=== PATIENT | female | born 1950 | race African-American/Black ===

== ENCOUNTER 2019-07-13 05:39 | Day surgery (SDC) | payer MEDICARE, MEDICAID ==
--- NOTE | 2019-07-10 13:32 | Opthalmology H&P ---
Ophthalmology H&P H&P Chief Complaint: decreased vision in right eye HPI Vision Affects Ability to: read Past Ocular History: glaucoma, retinal problems - HTN Retinopathy OU HPI Narrative Blurry vision Exam Visual Acuity: OD 20/80 OS 20/80 Tension: OD 10 OS 14 Eye Exam: normal OU: external exam, palpebral fissure-width, marginal reflex distance, levator function, corneas, anterior chambers; findings: lens, fundus exam - HTN Retinopathy OU Assessment/Plan Treatment Plan: cataract extraction w/ lens implant Goals of Treatment: improvement of vision, enhance quality of life Attestation Attestation The risks and benefits of the surgery as well as alternative procedures were explained to the patient in detail. Keith Soto MD Jul 10, 2019 13:32
--- NOTE | 2019-07-10 13:33 | Pre-Procedure Note/Attestation ---
Pre-Procedure Note/Attestation Complete Prior to Procedure Planned Procedure: right Procedure Narrative: Cataract extraction with IOL implant right eye Indications for Procedure Pre-Operative Diagnosis: Nuclear sclerotic cataract right eye Attestation I attest that I discussed the nature of the procedure; its benefits; risks and complications; and alternatives (and the risks and benefits of such alternatives ), prior to the procedure, with the patient (or the patient's legal aircraft sales representative). I attest that, if there was a reasonable possibility of needing a blood transfusion, the patient (or the patient's legal aircraft sales representative) was given the [facility] standardized written summary, pursuant to the Galen [employer] Blood Safety Act ([place] Health and Safety Code # 1645, as amended). I attest that I re-evaluated the patient just prior to the surgery and that there has been no change in the patient's H&P, except as documented below: Keith Soto MD Jul 10, 2019 13:33
[2019-07-13] VITALS (10 sets, daily range): BP systolic 103–129; BP diastolic 64–81
[~2019-07-13] VITALS: Ht 167.6 cm; Wt 81.2 kg
[2019-07-13] MEDS ORDERED: Proparacaine 0.5% Opth Soln 15ml RIGHT EYE ONE (07:00)
[2019-07-13] MEDS ORDERED: Tetracaine 0.5% Opth 4ml Soln RIGHT EYE ONE (07:00)
[2019-07-13] MEDS ORDERED: Akten 3.5% 1ml Btl RIGHT EYE ONE (07:00)
[2019-07-13 07:57] LABS: BASOPHILS % (AUTO) 4.2 % (0.0-2.0); EOSINOPHILS % (AUTO) 2.2 % (0.0-3.0); HEMATOCRIT 36.7 % (37.0-47.0); HEMOGLOBIN 12.5 G/DL (12.0-16.0); MEAN CORPUSCULAR VOLUME 86 FL (80-99); NEUTROPHILS % (AUTO) 64.6 % (45.0-75.0); PLATELET COUNT 271 K/UL (150-450); RED BLOOD COUNT 4.27 M/UL (4.20-5.40); RED CELL DISTRIBUTION WIDTH 12.2 % (11.6-14.8); WHITE BLOOD COUNT 7.3 K/UL (4.8-10.8)
[2019-07-13 08:25] LABS: ANION GAP 12 mmol/L (5-15); BLOOD UREA NITROGEN 35 mg/dL (7-18); CARBON DIOXIDE 22 MMOL/L (21-32); CHLORIDE 109 MMOL/L (98-107); CREATININE 2.6 MG/DL (0.55-1.30); POTASSIUM 4.2 MMOL/L (3.5-5.1); SODIUM 143 MMOL/L (136-145)
[2019-07-13] MEDS: Phenylephrine 10% Opth Soln 5ml RIGHT EYE SCH ×3 (08:53→09:15)
[2019-07-13] MEDS: Cyclopentolate 1% Opth Sol 2ml RIGHT EYE SCH ×3 (08:53→09:15)
[2019-07-13] MEDS: Tropicamide 1% Opth 15ml Soln RIGHT EYE SCH ×3 (08:53→09:15)
[2019-07-13] MEDS: Tobramycin Op Soln 0.3% 5ml RIGHT EYE SCH ×3 (08:53→09:15)
[2019-07-13] MEDS: Diclofenac Sod 0.1% Op Soln RIGHT EYE SCH ×3 (08:54→09:15)
[2019-07-13] MEDS ORDERED: BP MED PO (09:02)
[2019-07-13] MEDS ORDERED: VENTOLIN HFA18 GM INH (09:20)
[2019-07-13] MEDS ORDERED: LR 1000ml 1,000 ML IVLG SCH (09:59)
[2019-07-13] MEDS ORDERED: Labetalol 5mg/ml 20ml vial IV PRN (10:00)
[2019-07-13] MEDS ORDERED: DiphenhydrAMINE 50mg/ml Inj IVP PRN (10:00)
[2019-07-13] MEDS ORDERED: Midazolam 2mg/2ml Inj IVP PRN (10:00)
[2019-07-13] MEDS ORDERED: Meperidine 25mg/0.5ml Inj (FOR RIGORS ONLY) IV PRN (10:00)
[2019-07-13] MEDS ORDERED: oxyCODONE HCL/Acetaminophen 5/325mg ORAL PRN (10:00)
[2019-07-13] MEDS ORDERED: LORazepam Inj 2mg/ml 1ml IV PRN (10:00)
[2019-07-13] MEDS ORDERED: fentaNYL 100 mcg/2 mL IV PRN (10:00)
[2019-07-13] MEDS ORDERED: Ketorolac 30mg Inj IV PRN ×2 (10:00)
[2019-07-13] MEDS ORDERED: Metoclopramide 10mg/2ml Inj IVP PRN (10:00)
[2019-07-13] MEDS ORDERED: HYDROcodone/Acetamin 7.5/325 tab ORAL PRN (10:00)
[2019-07-13] MEDS ORDERED: Hydromorphone 0.5mg/0.5ml inj IVP PRN (10:00)
[2019-07-13] MEDS ORDERED: HYDROcodone/Acetamin 5/325 tab ORAL PRN (10:00)
[2019-07-13] MEDS ORDERED: Atropine Sulfate 0.4mg/ml inj IVP PRN (10:00)
--- NOTE | 2019-07-13 10:10 | Anethesia Preoperative Eval ---
Anesthesia Pre-op PMH/ROS General Date of Evaluation: Jul 13, 2019 Time of Evaluation: 10:32 Anesthesiologist: Chuckie ASA Score: ASA 3 Mallampati Score Class I : Soft palate, uvula, fauces, pillars visible Class II: Soft palate, uvula, fauces visible Class III: Soft palate, base of uvula visible Class IV: Only hard plate visible Mallampati Classification: Class III Surgeon: Brittany Diagnosis: Cataract OD Surgical Procedure: CAT EXT IOL OD Social History: current smoker Family History: no anesthesia problems Allergies: Coded Allergies: No Known Allergies (Unverified , 07/13/19) Medications: see eMAR Patient NPO?: Yes Past Medical History Cardiovascular: Reports: HTN, CAD, [place] Pulmonary: Reports: asthma, COPD Neurologic/Psychiatric: Reports: CVA HEENT: Reports: cataract (L), cataract (R) Hematology/Immune: Reports: anemia Musculoskeletal/Integumentary: Reports: other - Back Pain PSxH Narrative: Ovarian Cyst Anesthesia Pre-op Phys. Exam Physician Exam Last Vital Signs Date Time Temp Pulse Resp B/P (MAP) Pulse Ox O2 Delivery O2 Flow Rate FiO2 07/13/19 09:10 Room Air 07/13/19 08:00 98.0 62 15 103/64 99 Constitutional: NAD Neurologic: CN 2-12 intact Cardiovascular: RRR Respiratory: CTA Gastrointestinal: S/NT/ND Airway Exam Mallampati Score: Class III MO: limited ROM: limited Teeth: missing, intact Anesthesia Pre-op A/P Labs Hematology Test 07/13/19 07:30 White Blood Count 7.3 K/UL (4.8-10.8) Red Blood Count 4.27 M/UL (4.20-5.40) Hemoglobin 12.5 G/DL (12.0-16.0) Hematocrit 36.7 % (37.0-47.0) L Mean Corpuscular Volume 86 FL (80-99) Mean Corpuscular Hemoglobin 29.3 PG (27.0-31.0) Mean Corpuscular Hemoglobin Concent 34.1 G/DL (32.0-36.0) Red Cell Distribution Width 12.2 % (11.6-14.8) Platelet Count 271 K/UL (150-450) Mean Platelet Volume 6.0 FL (6.5-10.1) L Neutrophils (%) (Auto) 64.6 % (45.0-75.0) Lymphocytes (%) (Auto) 24.0 % (20.0-45.0) Monocytes (%) (Auto) 5.0 % (1.0-10.0) Eosinophils (%) (Auto) 2.2 % (0.0-3.0) Basophils (%) (Auto) 4.2 % (0.0-2.0) H Chemistry Test 07/13/19 07:30 Sodium Level 143 MMOL/L (136-145) Potassium Level 4.2 MMOL/L (3.5-5.1) Chloride Level 109 MMOL/L (98-107) H Carbon Dioxide Level 22 MMOL/L (21-32) Anion Gap 12 mmol/L (5-15) Blood Urea Nitrogen 35 mg/dL (7-18) H Creatinine 2.6 MG/DL (0.55-1.30) H Estimat Glomerular Filtration Rate 22.2 mL/min (>60) Glucose Level 93 MG/DL (74-106) Calcium Level 10.0 MG/DL (8.5-10.1) Risk Assessment & Plan Assessment: ASA 3 Plan: TIVA Status Change Before Surgery: Chandana Gonzales MD Jul 13, 2019 10:10
--- NOTE | 2019-07-13 10:12 | Immediate Post-Op Evaluation ---
Immediate Post-Op Evalulation Immediate Post-Op Evalulation Procedure: CAT EXT IOL OD Date of Evaluation: Jul 13, 2019 Time of Evaluation: 11:27 IV Fluids: 700 LR Blood Products: 0 Estimated Blood Loss: 1 Urinary Output: 0 Blood Pressure Systolic: 119 Blood Pressure Diastolic: 79 Pulse Rate: 61 Respiratory Rate: 16 O2 Sat by Pulse Oximetry: 99 Temperature (Fahrenheit): 98.9 Pain Score (1-10): 1 Nausea: No Vomiting: No Complications 0 Patient Status: awake, reacts, patent, none Hydration Status: adequate Chandaan Noguera MD Jul 13, 2019 10:11
--- NOTE | 2019-07-13 10:13 | 48 Hour Post Anesthesia Eval ---
Post Anesthesia Evaluation Procedure: CAT EXT IOL OD Date of Evaluation: Jul 13, 2019 Time of Evaluation: 13:34 Blood Pressure Systolic: 132 0: 68 Pulse Rate: 71 Respiratory Rate: 18 Temperature (Fahrenheit): 98.6 O2 Sat by Pulse Oximetry: 100 Airway: patent Nausea: No Vomiting: No Pain Intensity: 1 Hydration Status: adequate Cardiopulmonary Status: Stable Mental Status/LOC: patient returned to baseline Follow-up Care/Observations: 0 Post-Anesthesia Complications: 0 Follow-up care needed: ready to discharge Chandana Noguera MD Jul 13, 2019 10:13
[2019-07-13] MEDS ORDERED: Propofol 200mg/20ml IV ONE (10:18)
[2019-07-13] MEDS ORDERED: Polysporin Oint 15gm TOPIC ONE (10:30)
[2019-07-13] MEDS ORDERED: NS Irrig 1000ml ONE (10:30)
[2019-07-13] MEDS ORDERED: Lidocaine 1% MPF 10mg/ml 5ml ONE (10:30)
[2019-07-13] MEDS ORDERED: LR 1000ml ONE (10:30)
[2019-07-13] MEDS ORDERED: Sterile Water Irrig 1000ml IRRIG ONE (10:30)
[2019-07-13] MEDS ORDERED: Dexamethasone 4mg/ml vial ONE (10:30)
[2019-07-13] MEDS ORDERED: prednisoLONE acetate 1% Opth Susp 1ml ONE (10:30)
[2019-07-13] MEDS ORDERED: Pilocarpine 1% Opth 15ml Soln ONE (10:30)
[2019-07-13] MEDS ORDERED: acetaZOLAMIDE 500mg Inj ONE (11:19)
[2019-07-13] MEDS ORDERED: BSS 500ml btl ONE (13:34)
[2019-07-13] MEDS ORDERED: Povidone-Iodine 5% opth solution ONE (13:34)
[2019-07-13] MEDS ORDERED: Sodium Hyaluronate 10 mg/ml 0.85ml ONE (13:34)
[2019-07-13] MEDS ORDERED: EPINEPHrine 1mg/1ml Amp ONE (13:34)
[2019-07-13] MEDS ORDERED: BSS 15ml BTL ONE (13:34)
--- NOTE | 2019-07-13 16:30 | Pre-op HX & Phy Repo 2 SIG ---
DATE OF ADMISSION: 07/13/2019 PRESURGICAL INTERNAL MEDICINE HISTORY AND PHYSICAL DATE OF EVALUATION: July 13, 2019 REASON FOR EVALUATION: I was asked by Dr. Keith Soto to see this 68-year-old female, who is going for elective surgery on the right eye. The patient has nuclear sclerotic cataract in the right eye. Please see full Ophthalmology History and Physical by Dr. Keith Soto. The patient was evaluated in Outpatient Procedure at [facility]. PAST MEDICAL HISTORY: Remarkable for history of hypertension, history of myocardial infarction and stroke in 1995. No history of diabetes. No history of GI bleeding or heartburn. No history of thyroid problem or anemia. Denies history of renal failure or arthritis. PAST SURGICAL HISTORY: Remarkable for left ovary removed in 1975. FAMILY HISTORY: Mother from complication of diabetes mellitus and end-stage renal disease. She was on hemodialysis. Father had diabetes mellitus as well. ALLERGIES: The patient denies allergy to medication or food. PRESENT MEDICATIONS: Include inhalers for bronchial asthma and two blood pressure medication, unable to name it. SOCIAL HISTORY: The patient is smoker for many, many years and currently smokes about one cigarette a day. Denies alcohol or street drug use. PHYSICAL EXAMINATION: GENERAL: Alert, well-developed, well-nourished female, in her 60s, in no acute distress. VITAL SIGNS: Blood pressure 103/64, temperature 98, pulse 65, respirations 18, and O2 saturation 99% on room air. SKIN: Clear and warm. No diaphoresis. No jaundice. No rashes. LYMPHATICS: Lymph nodes not enlarged. HEENT: Head normocephalic and atraumatic. Ears clear, no discharge. Nose clear, no discharge. Eyes, full description per Dr. Keith Soto. Mouth, clear and moist. No dentures. NECK: No jugular venous distention. Carotids artery +2. Trachea midline. CHEST: No deformity or asymmetry. LUNGS: Clear to percussion. No rales or rhonchi. HEART: Heart sounds distant. No ectopy. No murmur. No S3, S4. ABDOMEN: Soft, obese. Liver and spleen not enlarged. No rebound. EXTREMITIES: No peripheral edema. No varicose veins. No deformity. NERVOUS SYSTEM: No asymmetry. No tremor. No nystagmus. GENITOURINARY TRACT: Denies dysuria. CVA nontender. LABORATORY AND DIAGNOSTIC DATA: EKG, sinus bradycardia, anterior myocardial infarction old. The patient is NPO from 7 p.m. yesterday. Took medication for blood pressure at 3 o'clock in the morning. Please see the old laboratory work done, which showed white blood count 7.3, hemoglobin 12.5, and hematocrit 36.7. Chemistry, sodium 143, potassium 4.2, BUN 35, and creatinine 2.6. Estimated GFR 22.2 suggestive of chronic renal insufficiency. IMPRESSION: 1. Nuclear sclerotic cataract, right eye. 2. Hypertension, controlled. 3. History of bronchial asthma, controlled, stable. 4. History of myocardial infarction and stroke, clinically stable. 5. Renal insufficiency, stage 4. PLAN: Cataract extraction, right eye, with intraocular lens implant per Dr. Keith Soto. CONCLUSION: The patient is a 68-year-old female. Vital signs stable. The patient had EKG changes that are suggestive of anterior myocardial infarction by history in 1995, which showed FL and stroke clinically stable. The patient has chronic renal insufficiency stage 4, which laboratory work is in the chart. The patient did not eat or drink from 7 p.m. yesterday. The patient's condition optimized for surgery. Thank you very much, Dr. Soto, for privilege to participate in presurgical care of this interesting patient. Austin Mendoza M.D. DR: LAUREN JOB#: [id number] CC:
--- NOTE | 2019-07-15 07:56 | Brief Operative Note ---
Immediate Post Operative Note Operative Note Chief Complaint: Blurry vision Pre-op Diagnosis: Nuclear sclerotic cataract right eye Procedure: Cataract extraction with IOL implant right eye Post-op Diagnosis: Pseudo OD Findings: consistent w/pre-op dx studies Surgeon: Keith Soto MD Anesthesiologist: Chandana Noguera MD Anesthesia: MAC Specimen: none Complications: none Condition: stable Fluids: LR Estimated Blood Loss: none Drains: none Implant(s) used?: Yes - IOL-OD Keith Soto MD Jul 15, 2019 07:56
--- NOTE | 2019-07-15 08:01 | Operative Note - PDOC ---
Operative Note Operative Note Date of Operation/Procedure: Jul 13, 2019 Chief Complaint: Blurry vision Pre-op Diagnosis: Nuclear sclerotic cataract right eye Procedure: Cataract extraction with IOL implant right eye Post-op Diagnosis: Pseudo OD Operative Findings: consistent w/pre-op dx studies Surgeon: Keith Soto MD Anesthesiologist: Chandana Noguera MD Anesthesia: MAC Specimen: none Complications: none Condition: stable Fluids: LR Estimated Blood Loss: none Drains: none Implant(s) used?: Yes Indications for Procedure Nuclear sclerotic cataract right eye Description of Procedure This patient has been complaining visually significant cataract in the right eye with the best corrected visual acuity of 20/80 under moderate glare conditions worse. The patient complains of difficulties with glare in performing activities of daily living and wants to manage personal affairs with comfort and accuracy and see well enough to move with safety at home and outdoors. The risks, benefits and alternatives of the procedure were discussed with the patient in the office prior to scheduling surgery. All questions from the patient were answered after the surgical procedure was explained in detail. The risks of the procedure as explained to the patient include, but are not limited to, pain, infection, bleeding, loss of vision, retinal detachment, need for further surgery, loss of lens nucleus, double vision, etc. Alternative procedures were discussed which include, to do nothing or seek a second opinion. Informed consent for this procedure was obtained from the patient. The patient was referred to a primary care physician for a cardiopulmonary clearance prior to surgery, after proper evaluation was done patient was properly scheduled for outpatient surgery. The patient was brought to the operating room where the anesthesiologist established I.V. lines and cardiac monitoring leads. Mild intravenous sedation was administered. The patient was then prepared with a 5% solution of povidone -iodine to the conjunctival fornix and lashes, and a 5% solution of povidone- iodine to the lids and periorbital skin. The patient was then draped in the usual sterile fashion. A lid speculum was then placed in the operative eye. A keratome blade was then used to create a biplanar incision into the anterior chamber. Viscoelastics was then instilled into the anterior chamber. A capsulorrhexis was then fashioned with an utrata forceps A G 27 cannula was used to hydrodissect and hydro delineate the lens nucleus. Paracentesis incision was made at 3 o'clock with sharp blade. The phacoemulsification unit, after being properly adjusted and tested, was then used to emulsify the nucleus. Residual cortical material was aspirated with the irrigation and aspiration unit. Healon was then instilled into the anterior chamber. The corneal wound was then enlarged to the size of the optic with the sotero keratome blade. The intraocular lens was then inspected for right power and size and thought to be satisfactory. Then the lens was gently placed in the capsular bag. Positioning within the capsular bag was confirmed by direct visualization. Optic centration was accomplished with a Sinskey hook. Viscoelastics was removed from the anterior chamber using the irrigation and aspiration unit. The corneal wound was then tested for leaks and none were found. The lid speculum were then removed. Sponge and needle counts were correct. An eye patch and shield were placed over the operative eye. The patient was taken to the recovery room in stable condition. There were no complications. The patient tolerated the procedure well. The patient was then transferred to the ambulatory surgery unit in stable and satisfactory condition , was given detailed written instructions and asked to follow up in the office the next day. Keith Soto MD Jul 15, 2019 08:01
== END 2019-07-13 12:30 | disposition home or self-care (01) ==
LOC: SUR 05:39
DX: H25.11 Age-related nuclear cataract, right eye (principal); I10 Essential (primary) hypertension; I11.9 Hypertensive heart disease without heart failure; I25.2 Old myocardial infarction; J44.9 Chronic obstructive pulmonary disease, unspecified; Z86.73 Personal history of transient ischemic attack (TIA), and cerebral infarction without residual deficits; F17.200 Nicotine dependence, unspecified, uncomplicated; N28.9 Disorder of kidney and ureter, unspecified; R00.1 Bradycardia, unspecified; Z90.721 Acquired absence of ovaries, unilateral
CPT/HCPCS: 36415; 66984; 80048; 85025; 93005; J0171; J1100; J1120; J2250; J2704; J3370; J7120; V2632; 94003; 94150